=== PATIENT | female | born 1940 | race Two or more races ===

== ENCOUNTER 2024-07-21 05:33 | Day surgery (SDC) | payer OTHER ==
[~2024-07-21 05:33] MED LIST: AMLODIPINE BESYL5 MG; INTEGRA PLUS C1 EACH PO; LOSARTAN POTAS100 MG; PRE PROTEIN1 EACH PO; [UNRECOGNIZED DRUG - OTHER]
[2024-07-21] MEDS ORDERED: CEFAZOLIN SODIUM 1,000 MG VIAL IV ONE (08:15)
[2024-07-21] MEDS ORDERED: EPINEPHRINE HCL/PF 1 MG/ML AMPUL IJ ONE (08:15)
[2024-07-21] MEDS ORDERED: POVIDONE-IODINE 118 ML BOTT TOP ONE (08:30)
[2024-07-21] MEDS ORDERED: CHLORHEXIDINE GLUCONATE 120 ML BOTTLE TOP ONE (08:30)
[2024-07-21] MEDS ORDERED: IBU800 MG PO (10:06)
[2024-07-21] MEDS ORDERED: ZOFRAN8 MG PO (10:07)
[2024-07-21] MEDS ORDERED: SURFAK240 M1 PO (10:07)
[2024-07-21] MEDS ORDERED: NEURONTIN300 MG PO (10:07)
[2024-07-21] MEDS ORDERED: BACTRIM 400-801 EACH PO (10:07)
== END 2024-07-21 13:50 | disposition home or self-care (01) ==
LOC: CIR.AMB 05:33
PROVIDERS: ATTEND Obstetrics & Gynecology Gynecology
DX: N81.3 Complete uterovaginal prolapse (principal); Z88.5 Allergy status to narcotic agent

== ENCOUNTER 2024-07-26 14:03 | Inpatient (IN) | payer OTHER ==
[~2024-07-26] VITALS: Ht 154.9 cm; Wt 61.2 kg
[~2024-07-26 14:03] MED LIST changes: +BACTRIM 400-801 EACH PO; +IBU800 MG PO; +NEURONTIN300 MG PO; +SURFAK240 M1 PO; +ZOFRAN8 MG PO
[2024-07-26] MEDS ORDERED: PIPERACILLIN/TAZOBACTAM SODIUM 3.375 GM VIAL IV ONE (14:15)
[2024-07-26] MEDS ORDERED: FAMOtidine 10 MG/ML (4ML VIAL) IV ONE (14:15)
[2024-07-26] MEDS ORDERED: 0.9 % SODIUM CHLORIDE 1,000 ML IV SCH ×2 (14:15→17:30)
[2024-07-26 16:07] LABS: HEMATOCRIT 30.2 % (36.0-45.00); HEMOGLOBIN 10.2 g/dL (12.0-15.00); MEAN CELL VOLUME 94.2 fL (80.00-100.00); MEAN CORPUSCULAR HEMOGLOBIN 31.7 pg (27.00-32.0); MEAN CORPUSCULAR HGB CONC 33.7 g/dl (32.0-36.0); PLATELET COUNT 253 K/uL (150-450)
[2024-07-26 16:10] LABS: ERYTHROCYTE SEDIMENTATION RATE 63 mm/hr
[2024-07-26 16:18] LABS: PARTIAL THROMBOPLASTIN TIME 26.5 SECONDS (22.0-34.0); PROTHROMBIN TIME 10.9 SECONDS (9.0-11.5)
[2024-07-26 16:25] LABS: ALBUMIN 3.2 gm/dL (3.4-5.0); BILIRUBIN TOTAL 0.46 mg/dL (0.3-1.2); CALCIUM 8.7 mg/dL (8.5-10.1); CREATININE SERUM 0.93 mg/dL (0.55-1.02); GFR 57.72; GLOBULINA 3.2 G/DL (2.4-3.5); POTASSIUM 3.66 mEq/L (3.5-5.1); TOTAL PROTEIN 6.4 gm/dL (6.4-8.2)
[2024-07-26 16:26] LABS: C-REACTIVE PROTEIN 7.57 MG/DL (0.00-0.29)
[2024-07-26 16:38] LABS: URINE APPEARANCE Clear; URINE BILIRRUBIN Negative (NEGATIVE); URINE BLOOD Trace; URINE COLOR Yellow; URINE GLUCOSE Negative (NEGATIVE); URINE KETONE Negative (NEGATIVE); URINE LEUKOCYTE Small; URINE NITRATE Negative; URINE PROTEIN Negative (NEGATIVE)
[2024-07-26 16:42] LABS: URINE BACTERIA 206.5 uL (0.0-1933); URINE WBC 52.6 uL (0.0-23.2)
[2024-07-26 16:54] LABS: URINE RBC 1.9 uL (0.0-20.8)
[2024-07-26 23:49] VITALS: BP 121/71; O2SAT 97
[2024-07-27 07:19] LABS: INR 1.03; PARTIAL THROMBOPLASTIN TIME 26.3 SECONDS (22.0-34.0); PROTHROMBIN TIME 11.2 SECONDS (9.0-11.5)
[2024-07-27 07:30] LABS: HEMATOCRIT 30.3 % (36.0-45.00); HEMOGLOBIN 10.3 g/dL (12.0-15.00); MEAN CELL VOLUME 95.7 fL (80.00-100.00); MEAN CORPUSCULAR HEMOGLOBIN 32.6 pg (27.00-32.0); PLATELET COUNT 241 K/uL (150-450); RED BLOOD COUNT 3.16 M/uL (4.00-6.00)
[2024-07-27 07:46] VITALS: BP 121/78; O2SAT 98
[2024-07-27 07:53] LABS: BILIRUBIN TOTAL 0.53 mg/dL (0.3-1.2); CALCIUM 8.2 mg/dL (8.5-10.1); CREATININE SERUM 1.02 mg/dL (0.55-1.02); GFR 51.88; GLOBULINA 3.2 G/DL (2.4-3.5); POTASSIUM 3.85 mEq/L (3.5-5.1); TOTAL PROTEIN 6.2 gm/dL (6.4-8.2)
[2024-07-27 08:17] LABS: TSH 0.335 uIU/mL (0.358-3.74)
[2024-07-27] MEDS ORDERED: LINEZOLID IN DEXTROSE 5% 300 ML IV SCH (09:15)
[2024-07-27] MEDS ORDERED: FAMOtidine 20 MG TABLET PO NR (10:00)
[2024-07-27] MEDS ORDERED: PIPERACILLIN/TAZOBACTAM SODIUM 3.375 GM VIAL IV SCH (12:00)
[2024-07-27 16:41] VITALS: BP 115/64
[2024-07-27] MEDS ORDERED: LACTOBACILLUS ACIDOPHILUS 1 CAP CAP PO SCH (17:00)
[2024-07-27] MEDS ORDERED: FAMOtidine 20 MG TABLET PO SCH (21:00)
[2024-07-28] VITALS: BP 98/60
[2024-07-28 08:34] VITALS: BP 106/64
[2024-07-28] MEDS ORDERED: CHLORHEXIDINE GLUCONATE 120 ML BOTTLE TOP SCH (09:00)
[2024-07-28 14:03] LABS: HEMOGLOBIN 8.9 g/dL (12.0-15.00); MEAN CELL VOLUME 92.1 fL (80.00-100.00); MEAN CORPUSCULAR HEMOGLOBIN 32.7 pg (27.00-32.0); MEAN CORPUSCULAR HGB CONC 35.3 g/dl (32.0-36.0); PLATELET COUNT 217 K/uL (150-450); RED BLOOD COUNT 2.72 M/uL (4.00-6.00); RED CELL DISTRIBUTION WIDTH 12.7 % (11.5-14.5)
[2024-07-28 16:24] VITALS: BP 122/52
[2024-07-28 18:28] LABS: MEAN CELL VOLUME 92.1 fL (80.00-100.00); MEAN CORPUSCULAR HGB CONC 34.7 g/dl (32.0-36.0); PLATELET COUNT 247 K/uL (150-450); RED BLOOD COUNT 2.82 M/uL (4.00-6.00); RED CELL DISTRIBUTION WIDTH 12.7 % (11.5-14.5)
[2024-07-29 01:09] VITALS: BP 112/70
[2024-07-29 07:37] LABS: HEMATOCRIT 24.6 % (36.0-45.00); MEAN CELL VOLUME 91.7 fL (80.00-100.00); MEAN CORPUSCULAR HGB CONC 35.2 g/dl (32.0-36.0); PLATELET COUNT 240 K/uL (150-450); RED BLOOD COUNT 2.69 M/uL (4.00-6.00); RED CELL DISTRIBUTION WIDTH 12.5 % (11.5-14.5)
[2024-07-29 07:54] LABS: HEMOGLOBIN 8.7 g/dL (12.0-15.00); MEAN CORPUSCULAR HEMOGLOBIN 32.3 pg (27.00-32.0)
[2024-07-29 08:00] VITALS: BP 114/73
[2024-07-29] MEDS ORDERED: SOD FERRIC GLUC COMPLX/SUCROSE 62.5 MG/5 ML AMPUL IV SCH (09:00)
[2024-07-29 17:47] VITALS: BP 125/72
[2024-07-30 01:25] VITALS: BP 110/55
[2024-07-30 06:57] LABS: HEMATOCRIT 24.6 % (36.0-45.00); HEMOGLOBIN 8.4 g/dL (12.0-15.00); MEAN CELL VOLUME 92.6 fL (80.00-100.00); MEAN CORPUSCULAR HEMOGLOBIN 31.5 pg (27.00-32.0); PLATELET COUNT 243 K/uL (150-450); RED BLOOD COUNT 2.66 M/uL (4.00-6.00); RED CELL DISTRIBUTION WIDTH 12.5 % (11.5-14.5)
[2024-07-30 08:00] VITALS: BP 119/67
[2024-07-30] MEDS ORDERED: TOBRAMYCIN 20 DR/ML DROPS 5ML BOTTLE OP SCH (08:00)
[2024-07-30 16:00] VITALS: BP 105/63
[2024-07-31 01:51] LABS: PH,URINE 6.5 (5.0-8.0); URINE APPEARANCE Clear; URINE BILIRRUBIN Negative (NEGATIVE); URINE BLOOD Negative; URINE COLOR Yellow; URINE GLUCOSE Negative (NEGATIVE); URINE KETONE Negative (NEGATIVE); URINE LEUKOCYTE Trace; URINE NITRATE Negative; URINE PROTEIN Negative (NEGATIVE); URINE UROBILINOGEN 0.2 E.U./dl
[2024-07-31 01:55] LABS: URINE EPITHELIAL CELLS 2.3 uL (0.0-38.8); URINE WBC 13.8 uL (0.0-23.2)
[2024-07-31 01:56] LABS: URINE RBC 1.5 uL (0.0-20.8)
[2024-07-31 02:57] VITALS: BP 131/68
[2024-07-31 09:22] VITALS: BP 132/74
[2024-07-31 10:14] LABS: HEMATOCRIT 25.9 % (36.0-45.00); HEMOGLOBIN 9.3 g/dL (12.0-15.00); MEAN CORPUSCULAR HEMOGLOBIN 32.9 pg (27.00-32.0); MEAN CORPUSCULAR HGB CONC 35.8 g/dl (32.0-36.0); PLATELET COUNT 295 K/uL (150-450); RED BLOOD COUNT 2.82 M/uL (4.00-6.00)
[2024-07-31] MEDS ORDERED: INTESTINEX680 M1 PO (12:44)
== END 2024-07-31 13:18 | disposition home or self-care (01) | DRG 816 ==
LOC: ER 14:03 → OB/GYN 18:03 → SEC-K 18:03 → OB/GYN 07-27 06:28
PROVIDERS: Emergency Medicine Pediatric Emergency Medicine; General Practice; Internal Medicine Infectious Disease; Obstetrics & Gynecology Gynecology; ADMIT Obstetrics & Gynecology; ATTEND Obstetrics & Gynecology
PROC: BW21ZZZ Computerized Tomography (CT Scan) of Abdomen and Pelvis (ICD-10-PCS; principal; 2024-07-26)
PROC: BW21YZZ Computerized Tomography (CT Scan) of Abdomen and Pelvis using Other Contrast (ICD-10-PCS; 2024-07-26)
PROC: BW4GZZZ Ultrasonography of Pelvic Region (ICD-10-PCS; 2024-07-28)
DX: D72.820 Lymphocytosis (symptomatic) (principal); R50.82 Postprocedural fever; N81.4 Uterovaginal prolapse, unspecified; D64.9 Anemia, unspecified; D72.9 Disorder of white blood cells, unspecified; Z20.822 Contact with and (suspected) exposure to COVID-19